=== PATIENT | male | born 1980 | race Caucasian/White ===

== ENCOUNTER 2023-09-05 10:49 | Emergency (ER) | payer BC, OTHER ==
[2023-09-05] MEDS ORDERED: TDAP (DIPHTH,PERTUSS(ACELL),TET VAC) 0.5 ML VIAL IMVAC ONE (11:11)
[2023-09-05] MEDS ORDERED: HYDROCODONE/APAP 7.5/325 MG TAB ONE (11:11)
[2023-09-05] MEDS ORDERED: NA CHLORIDE 0.9% 100 ML ONE (11:12)
[2023-09-05] MEDS ORDERED: CEFAZOLIN SODIUM 2 GM/VIAL ONE (11:12)
[2023-09-05 11:28] LABS: Absolute Lymphocytes (CBC) 1.1 K/uL (0.7-4.9); Absolute Monocytes 0.9 K/uL (0.1-1.3); Absolute Neutrophil 10.3 K/uL (1.8-8.0); Basophils % 0.2 % (0-1.3); Hemoglobin 15.2 g/dL (13.6-17.9); Lymphocytes % 8.7 % (15.3-44.8); MCH 29.7 pg (27.0-35.0); MCHC 33.9 g/dL (32.0-36.0); MCV 87.8 fL (80-100); MPV 8.4 fL (7.6-11.3); Monocytes % 7.4 % (3.3-12.3); Neutrophils % 83.7 % (41.7-73.7); Platelets 230 thou/uL (152-406); RBC Red Blood Cell Count 5.12 M/uL (4.33-5.43); Red Cell Distribution Width 13.1 % (12.1-15.2)
[2023-09-05 11:41] LABS: Anion Gap 12.1 mEq/L (5.0-15.0); Potassium 4.1 mEq/L (3.5-5.1)
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
--- NOTE | 2023-09-05 12:51 | RAD REPORT ---
EXAM DESCRIPTION: RAD - Hand Right 3 View - 09/05/2023 12:27 pm CLINICAL HISTORY: Pain;Swelling COMPARISON: No comparisons TECHNIQUE: Right hand, 3 views. FINDINGS: Minimally displaced oblique fracture at the tip of the third digit distal phalanx. Overlyi ng soft tissue swelling. There is no dislocation or periosteal reaction noted. No foreign body or other soft tissue abnormalit y. IMPRESSION: Minimally displaced oblique fracture at the tip of the third digit distal phalanx.
--- NOTE | 2023-09-05 12:52 | RAD REPORT ---
EXAM DESCRIPTION: CHRISTINA CHANEY - 09/05/2023 12:27 pm CLINICAL HISTORY: Pain;Swelling COMPARISON: No comparisons TECHNIQUE: Left hand, 3 views. FINDINGS: Oblique mildly displaced fracture at the base of the first metacarpal. Swelling along the thenar eminence. There is no dislocation or periosteal reaction noted. Joint alignment is maintained. No foreign body or other soft tissue abnormality. IMPRESSION: Oblique mildly displaced fracture at the base of the first metacarpal.
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
[2023-09-05 14:30] VITALS: BP 126/83; TEMP 98.2; O2SAT 100
== END 2023-09-05 14:16 | disposition home or self-care (01) ==
LOC: ER 10:49
DX: S02.119A Unspecified fracture of occiput, initial encounter for closed fracture (principal); S62.292A Other fracture of first metacarpal bone, left hand, initial encounter for closed fracture; S62.392A Other fracture of third metacarpal bone, right hand, initial encounter for closed fracture; S00.01XA Abrasion of scalp, initial encounter; S30.811A Abrasion of abdominal wall, initial encounter; S90.812A Abrasion, left foot, initial encounter; S90.811A Abrasion, right foot, initial encounter; S40.812A Abrasion of left upper arm, initial encounter; S40.811A Abrasion of right upper arm, initial encounter; S80.812A Abrasion, left lower leg, initial encounter; S80.811A Abrasion, right lower leg, initial encounter; V86.55XA Driver of 3- or 4- wheeled all-terrain vehicle (ATV) injured in nontraffic accident, initial encounter
CPT/HCPCS: 36415; 70450; 71250; 72125; 80048; 82077; 85025; 96365; 96372; 99285

== ENCOUNTER 2023-09-16 06:03 | Day surgery (SDC) | payer OTHER ==
[2023-09-16] MEDS: Ringers Lactate 1,000 ML IV ONE (06:40)
[2023-09-16] MEDS: CEFAZOLIN SODIUM 1 GM/VIAL ONE (06:42)
[2023-09-16] MEDS ORDERED: MIDAZOLAM HCL 2 MG/2 ML INJ ONE (06:53)
[2023-09-16] MEDS ORDERED: FENTANYL CITR 100 MCG/2 ML ONE (06:55)
[2023-09-16] MEDS ORDERED: LIDOCAINE 1% MPF 5 ML VIAL ONE (06:55)
[2023-09-16] MEDS ORDERED: propofoL 200 MG/20 ML VIAL IV ONE (06:55)
[2023-09-16] MEDS ORDERED: dexAMETHasone 4 MG/ML VIAL ONE (07:09)
[2023-09-16] MEDS ORDERED: ONDANSETRON 4 MG/2 ML VIAL ONE (07:09)
[2023-09-16] MEDS ORDERED: KETOROLAC 30 MG/ML INJ ONE (07:09)
[2023-09-16] MEDS: HYDROMORPHONE HCL 1 MG/ML INJ ONE (08:06)
--- NOTE | 2023-09-16 08:12 | RAD REPORT ---
EXAM DESCRIPTION: RAD - Hand Left 2 View - 09/16/2023 7:57 am CLINICAL HISTORY: ORIF LT 1ST METACARPAL COMPARISON: Hand Left 3 View dated 09/05/2023 FINDINGS/IMPRESSION: Ten intraoperative fluoroscopic images were submitted demonstrating K-wire plac ement across the first metacarpal fracture. No radiologist was available for the procedure, nor will any image interpretation be provided. Laura whittaker refer to the procedural report for additional details Cumulative dose: 0.323 mGy Fluoro time: 0.3 minutes
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
[2023-09-16 09:36] VITALS: BP 118/76; TEMP 97.2; O2SAT 97
== END 2023-09-16 09:15 | disposition home or self-care (01) ==
LOC: OR 06:03
PROVIDERS: ATTEND Orthopaedic Surgery
PROC: 0PSQ34Z Reposition Left Metacarpal with Internal Fixation Device, Percutaneous Approach (ICD-10-PCS; principal; 2023-09-16 07:00)
DX: S62.232A Other displaced fracture of base of first metacarpal bone, left hand, initial encounter for closed fracture (principal)
CPT/HCPCS: 73120; 26608; J2704; J1100; J2001; J2250; J3010; J1170; J2405; J7120; J0690